=== PATIENT | female | born 1960 | race Caucasian/White ===

== ENCOUNTER 2020-11-16 11:45 | Outpatient (CLI) | payer OTHER ==
--- NOTE | 2020-11-16 12:13 | RAD ---
XR Knee Rt 2 View: 11/16/2020 11:49 AM CLINICAL INDICATION: Acute right knee pain COMPARISON: None. FINDINGS: Bones: There is enthesopathic change off the anterior patella. Joints: There are moderate marginal osteophytes affecting the major compartments of the right knee. T here is mild joint capsular distention.. Soft Tissue: No acute abnormality.. IMPRESSION: Moderate right knee osteoarthrosis.
== END 2020-11-16 11:46 | disposition home or self-care (01) ==
LOC: NAV RAD 11:45
PROVIDERS: ATTEND Nurse Practitioner Family
DX: M25.561 Pain in right knee (principal); M17.11 Unilateral primary osteoarthritis, right knee